=== PATIENT | female | born 1955 | race Caucasian/White ===

== ENCOUNTER → 2017-02-10 | Day surgery (SDC) | payer OTHER ==
[~2017-02-10] VITALS: Ht 167.6 cm; Wt 96.7 kg
[~2017-02-10] MED LIST: ASPIRIN EC81 MG PO; BENICAR 20 MG20 MG PO; EFFEXOR XR150 MG PO; FISH OIL OMEGA1 EAC2 PO; MAGNESIUM OXID250 MG PO; THERA-VITE W/ B1 TAB PO; VITAMIN B-12250 MCG PO; VITAMIN D3 COM1 EACH PO
== END | disposition disaster alternative care site (69) ==
LOC: GPOC 02-04 14:00 → GEND 08:11 → GPOC 14:00
PROC: 0DJD8ZZ Inspection of Lower Intestinal Tract, Via Natural or Artificial Opening Endoscopic (ICD-10-PCS; principal; 2017-02-10)
PROC: 0DB68ZX Excision of Stomach, Via Natural or Artificial Opening Endoscopic, Diagnostic (ICD-10-PCS; 2017-02-10)
DX: Z12.11 Encounter for screening for malignant neoplasm of colon (principal); R13.10 Dysphagia, unspecified; K44.9 Diaphragmatic hernia without obstruction or gangrene; K57.30 Diverticulosis of large intestine without perforation or abscess without bleeding; F32.9 Major depressive disorder, single episode, unspecified; I12.9 Hypertensive chronic kidney disease with stage 1 through stage 4 chronic kidney disease, or unspecified chronic kidney disease; K21.9 Gastro-esophageal reflux disease without esophagitis; N18.3 Chronic kidney disease, stage 3 (moderate); G47.30 Sleep apnea, unspecified; Z88.0 Allergy status to penicillin; Z88.1 Allergy status to other antibiotic agents; Z88.2 Allergy status to sulfonamides; Z90.49 Acquired absence of other specified parts of digestive tract; Z98.890 Other specified postprocedural states; Z79.899 Other long term (current) drug therapy
CPT/HCPCS: C1726; J7030